=== PATIENT | female | born 1960 | race Caucasian/White ===

== ENCOUNTER 2020-02-16 14:16 | Inpatient (IN) ==
[2020-02-16] MEDS ORDERED: *HR* Meperidine 25 MG/ML SYRINGE IVP PRN (14:49)
[2020-02-16] MEDS ORDERED: *HR* OxyCODONE Immed Rel 5 MG TABLET PO PRN (14:49)
[2020-02-16] MEDS ORDERED: Ondansetron 4 MG/2 ML VIAL IVP ONE (14:49)
[2020-02-16] MEDS ORDERED: Acetaminophen IV 1,000 MG/100 ML INFUS..BTL IVPB ONE (14:49)
[2020-02-16 15:26] LABS: Hematocrit 37.3 % (35.3-44.9); Hemoglobin 11.2 g/dL (11.5-15.4)
[2020-02-16] MEDS ORDERED: *HR* Propofol 200 MG/20 ML VIAL IVP ONE (15:31)
[2020-02-16] MEDS ORDERED: Lidocaine -MPF 4% 5 ML AMPUL ONE (15:31)
[2020-02-16] MEDS ORDERED: *HR* Rocuronium Bromide 50 MG/5 ML VIAL ONE (15:31)
[2020-02-16] MEDS ORDERED: Dexamethasone 4 MG/ML VIAL ONE ×2 (15:31→15:57)
[2020-02-16] MEDS ORDERED: Lidocaine -MPF 2% 2 ML VIAL ONE (15:31)
[2020-02-16] MEDS ORDERED: *HR* FentaNYL (PF) 100 MCG/2 ML VIAL ONE (15:31)
[2020-02-16] MEDS ORDERED: *HR* Succinylcholine 200 MG/10 ML VIAL IVP ONE (15:31)
[2020-02-16] MEDS ORDERED: CeFAZolin Syr 2,000MG/20 ML 2,000 MG/20 ML SYRINGE IVPB ONE (15:31)
[2020-02-16] MEDS ORDERED: Ondansetron 4 MG/2 ML VIAL ONE (15:31)
[2020-02-16] MEDS ORDERED: Ringers Solution, Lactated 1,000 ML IVC SCH ×2 (15:45→19:51)
[2020-02-16] MEDS ORDERED: Ropivacaine/PF 0.5% 30 ML VIAL ONE (15:56)
[2020-02-16] MEDS ORDERED: Vancomycin 1,000 MG VIAL ONE (16:03)
[2020-02-16] MEDS ORDERED: Ethanol\\Acetic Acid\\Na Ace\\Ben 1,000 ML IRRIG.SOLN IR ONE (16:03)
[2020-02-16] MEDS ORDERED: *HR* PHENYLEPHRINE 1,000 MCG/10 ML SYRINGE IVP ONE (16:43)
[2020-02-16] MEDS: *HR* HYDROmorphone PF 0.5 MG/0.5 ML SYRINGE IVP PRN ×2 (17:58→18:10)
[2020-02-16] MEDS ORDERED: MOM Conc 10 ML UD.LIQ PO PRN (19:51)
[2020-02-16] MEDS ORDERED: Ondansetron 4 MG/2 ML VIAL IVP PRN (19:51)
[2020-02-16] MEDS ORDERED: D5% in Water 1,000 ML IVC PRN (19:51)
[2020-02-16] MEDS ORDERED: *HR* Dextrose 50 % in Water (Vial) 50 ML VIAL IVP PRN (19:51)
[2020-02-16] MEDS ORDERED: Dextrose Gel 15 GM/37.5 ML TUBE PO PRN ×2 (19:51)
[2020-02-16] MEDS ORDERED: Naloxone 0.4 MG/ML INJ IVP PRN (19:51)
[2020-02-16] MEDS ORDERED: Sennosides 8.6 MG TABLET PO PRN (19:51)
[2020-02-16] MEDS ORDERED: Insulin LISPRO 300 UNITS/3 ML VIAL SQ SCH (21:00)
[2020-02-16] MEDS: CeFAZolin 2 GM/120 ML BAG IVPB SCH (23:07)
[2020-02-16] MEDS: *HR* OxyCODONE Immed Rel 5 MG TABLET PO PRN (23:07)
[2020-02-17] MEDS: *HR* OxyCODONE/APAP 5/325 TABLET PO PRN ×3 (00:39→11:06)
[2020-02-17 01:31] LABS: Hematocrit 33.7 % (35.3-44.9); Hemoglobin 10.1 g/dL (11.5-15.4)
[2020-02-17 01:51] LABS: Calcium 8.8 mg/dL (8.6-10.3); Potassium 4.6 mEq/L (3.5-5.1)
[2020-02-17] MEDS: *HR* OxyCODONE Immed Rel 5 MG TABLET PO PRN ×2 (03:08→08:28)
[2020-02-17] MEDS ORDERED: Insulin LISPRO 300 UNITS/3 ML VIAL SQ SCH (07:30)
[2020-02-17] MEDS: CeFAZolin 2 GM/120 ML BAG IVPB SCH (08:29)
[2020-02-17] MEDS ORDERED: Aspirin Enteric Coated 81 MG Tablet PO SCH ×2 (09:00)
[2020-02-17 10:56] VITALS: BP 127/73
== END 2020-02-17 11:45 | disposition home or self-care (01) | DRG 483 ==
LOC: SAMDAY 14:16 → 3NENU 18:55
PROVIDERS: ADMIT Orthopaedic Surgery; ATTEND Orthopaedic Surgery